=== PATIENT | female | born 2000 | race Caucasian/White ===

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

== ENCOUNTER 2020-06-13 09:52 | Emergency (ER) | payer OTHER, SELFPAY ==
[~2020-06-13] VITALS: Ht 154.9 cm; Wt 67.1 kg
[2020-06-13 10:32] VITALS: Ht 154.9 cm; Wt 67.1 kg
[2020-06-13 14:21] VITALS: BP 125/80
== END 2020-06-13 14:21 | disposition home or self-care (01) ==
LOC: ED 09:52
DX: U07.1 COVID-19 (principal); J45.909 Unspecified asthma, uncomplicated